=== PATIENT | male | born 1955 | race African-American/Black ===

== ENCOUNTER 2020-03-07 01:50 | Emergency (ER) | payer SELFPAY ==
[2020-03-07] MEDS ORDERED: Boostrix 0.5 ML (Tdap) VIAL ONE (02:44)
[2020-03-07 03:44] LABS: #Basophils 0.2 thou/uL (0.0-0.2); #Eosinphils 0.1 thou/uL (0.0-0.7); #Lymphocytes 1.8 thou/uL (1.20-3.40); #Monocytes 0.9 thou/uL (0.11-0.59); #Neutrophils 5.5 thou/uL (1.40-6.50); %Basophils 1.9 % (0.0-1.0); %Eosinophils 0.7 % (0.0-10.0); %Lymphocytes 21.3 % (21.0-51.0); %Monocytes 11.1 % (0.0-10.0); ALT (SGPT) 20 U/L (8-55); AST (SGOT) 33 U/L (5-34); Albumin 3.7 g/dL (3.4-4.8); Alkaline Phosphatase 48 U/L (40-110); Anion Gap 18 mmol/L (10-20); BUN (Urea Nitrogen) 79 mg/dL (8.4-25.7); Bilirubin, Total 0.6 mg/dL (0.2-1.2); Calc. Creatinine Clearance 0 mL/min (70-130); Calcium 8.7 mg/dL (7.8-10.44); Carbon Dioxide 18 mmol/L (23-31); Chloride 110 mmol/L (98-107); Globulin 5.3 g/dL (2.4-3.5); Glucose 86 mg/dL (80-115); Hemoglobin 11.1 g/dL (14.0-18.0); Mean Corpuscular HGB CONC 29.9 g/dL (32.0-36.0); Mean Corpuscular Hemoglobin 30.5 pg (27.0-31.0); Mean Corpuscular Volume 102.3 fL (78.0-98.0); Mean Platelet Volume 6.5 fL (7.4-10.4); Platelet Count 163 thou/uL (130-400); Platelet Morphology Comment Appears Adequate; RBC Distribution Width 16.9 % (11.5-14.5); RBC Morphology Normal; Red Blood Cell (RBC) Count 3.64 mill/uL (4.70-6.10); Sodium 139 mmol/L (136-145); White Blood Cell (WBC) Count 8.4 thou/uL (4.8-10.8)
[2020-03-07 04:01] LABS: Critical Call Chemistry EMS.CLJ
[2020-03-07 04:05] LABS: MDiff Complete? YES
[2020-03-07] MEDS ORDERED: Calcium Chloride 1 GM/10 ML Abboject SYRINGE ONE (05:09)
[2020-03-07] MEDS ORDERED: Albuterol Sulfate 2.5 mg/0.5 ml Neb ONE (05:13)
[2020-03-07] MEDS ORDERED: Insulin Regular 300 UNITS/3 ML VIAL ONE (05:13)
[2020-03-07] MEDS ORDERED: Dextrose 50% Abboject 50 ML SYRINGE ONE (05:13)
[2020-03-07] MEDS ORDERED: Lidocaine 1% 20 ML MDV ONE (05:30)
== END 2020-03-07 07:15 | disposition left against medical advice (07) ==
LOC: MADERS 01:50
DX: S80.811A Abrasion, right lower leg, initial encounter (principal); N17.9 Acute kidney failure, unspecified; E87.5 Hyperkalemia; I10 Essential (primary) hypertension; V89.2XXA Person injured in unspecified motor-vehicle accident, traffic, initial encounter
CPT/HCPCS: 36415; 36416; 80053; 85025; 90471; 90715; 96374; J1815; J7611